=== PATIENT | male | born 1955 | race Caucasian/White ===

== ENCOUNTER 2022-09-05 06:58 | Day surgery (SDC) | payer MEDICARE ==
[2022-08-31 09:10] VITALS: BMI 23.3
[2022-09-05] MEDS ORDERED: Bupivacaine/Epinephrine 0.25% 30 ML VIAL ONE (07:05)
[2022-09-05] MEDS ORDERED: CEFAZOLIN 2 GM VIAL ONE (07:35)
[2022-09-05] MEDS ORDERED: Sodium Chloride 0.9% 100 ML ONE (07:35)
[2022-09-05] MEDS ORDERED: ePHEDrine Sulfate 50 MG/10 ML VIAL ONE (07:52)
[2022-09-05] MEDS ORDERED: Lidocaine 1% PF 5 ML VIAL ONE (07:52)
[2022-09-05] MEDS ORDERED: Ketorolac Tromethamine 30 MG/ML VIAL ONE (07:52)
[2022-09-05] MEDS ORDERED: NEOSTIGMINE 3 MG/3 ML SYR 3 MG/3 ML SYRINGE ONE (07:52)
[2022-09-05] MEDS ORDERED: PROPOFOL 200 MG/20 ML VIAL ONE (07:52)
[2022-09-05] MEDS ORDERED: Dexamethasone 20 MG/5 ML VIAL ONE (07:52)
[2022-09-05] MEDS ORDERED: Ondansetron PF 4 MG/2 ML Vial ONE (07:52)
[2022-09-05] MEDS ORDERED: Rocuronium Bromide 10 MG/ML (10ML VIAL) ONE (07:52)
[2022-09-05] MEDS ORDERED: Glycopyrrolate 0.2 MG/ML 5 ML SYRINGE ONE (07:52)
[2022-09-05] MEDS ORDERED: Fentanyl 250 MCG/5 ML VIAL ONE (09:49)
[2022-09-05] MEDS ORDERED: Famotidine/PF 20 mg/2ml Vial ONE (09:49)
== END 2022-09-05 14:43 | disposition home or self-care (01) ==
LOC: SDC 06:58
PROVIDERS: ATTEND Surgery
PROC: 0DQV4ZZ Repair Mesentery, Percutaneous Endoscopic Approach (ICD-10-PCS; principal; 2022-09-05)
PROC: 0WUF47Z Supplement Abdominal Wall with Autologous Tissue Substitute, Percutaneous Endoscopic Approach (ICD-10-PCS; 2022-09-05)
DX: K40.90 Unilateral inguinal hernia, without obstruction or gangrene, not specified as recurrent (principal); K43.9 Ventral hernia without obstruction or gangrene; Z79.899 Other long term (current) drug therapy
CPT/HCPCS: 49593; 49650; C1781 ×2; C1889; J1100; J1885; J2405; J2704; J3010; J3490; S0028